=== PATIENT | male | born 2000 | race Caucasian/White ===

== ENCOUNTER 2018-10-27 16:56 | Emergency (ER) | payer BC ==
[~2018-10-27] VITALS: Ht 175.3 cm; Wt 76.0 kg
[2018-10-27 17:01] VITALS: BP 132/73
== END 2018-10-27 18:42 | disposition home or self-care (01) ==
LOC: ED 17:30
DX: S20.211A Contusion of right front wall of thorax, initial encounter (principal); W17.89XA Other fall from one level to another, initial encounter; Y93.23 Activity, snow (alpine) (downhill) skiing, snowboarding, sledding, tobogganing and snow tubing; Y92.828 Other wilderness area as the place of occurrence of the external cause; Y99.8 Other external cause status
CPT/HCPCS: 99283